=== PATIENT | male | born 1995 | race Caucasian/White ===

== ENCOUNTER 2020-11-29 05:36 | Inpatient (IN) | payer MEDICAID, SELFPAY ==
[2020-11-29 06:01] VITALS: BMI 18.0
--- NOTE | 2020-11-29 06:16 | PC.NURSE ---
25/M SI/ SUBSTANCE ABUSE +METH VOLUNTARY WITH AFFADAVIT DIRECT ADMIT FROM [facility] CHRONIC SUICIDAL IDEATION WITH MULTIPLE PAST ATTEMPTS WITH VARIOUS MODALITIES. REPORTS AUDITORY HALLUCINATIONS CONSTANTLY WITH SOME SHADOWS APPEARING IN VISUAL HALLUCINATIONS RECENTLY, STATES VOICES TELL HIM TO HARM HIMSELF AND HE IS ATTEMPTING TO BLOCK THIS OUT. PT ASKING FOR HELP . [employer] DAILY DRINKING/POT/CIGARETTES SINCE AGE 10. AND METH SINCE AGE 20 DAILY
[2020-11-29] MEDS: acetaminophen 325 mg Tablet 650 MG PO (11:35)
[2020-11-29 14:00] VITALS: BP 115/73; PULSE 56; RESP 18; TEMP 35.8; O2SAT 96
--- NOTE | 2020-11-29 14:50 | P.HP_ITS ---
Providers/Chief Complaint Admitting Physician: Chad Castillo MD Chief Complaint: SI HPI NPU History of Present Illness Rozina Lima is a 25 year old male transferred from [facility] with hallucinations, methamphetamine and alcohol use, and suicidal ideation. He was medically stabilized and cleared prior to transfer. The ED note states: Cathy Lima is a 25-year-old male who has a history of polysubstance abuse, bipolar disorder, recent admission to the [facility] open as needed 11/10?11/16/2020) discharged continuing risperidone and starting Depakote presenting to the ED today for evaluation of SI. Patient reports a long history of SI. He states I have been trying to since I left [place] and describes that is when he left his mom. Patient reports that he has had auditory julieth lucinations since being from his mother. Patient states that his hallucinations have been intermittent and change with medication, however he has SI constantly and it has not changed with any of his medication adjustments. Patient was just discharged from the [place] on 11/16/2020 with his hallucinations improved, however he admits he was still having suicidal ideation. Shortly after being discharged, patient stopped taking his prescribed medications. He complains that in order to stop the hallucinations, he uses drugs and alcohol, but they do not help. He states that his hallucinations do not tell him to harm himself and that his SI is independent of the hallucinations. Patient admits that he has used methamphetamines and alcohol. Labs from [facility] on 11/27/2020 showed CBC that was essentially normal, CMP that was normal, and alcohol level of 23. Salicylate and acetaminophen levels were negative. Valproic acid level was 2.8. The patient was admitted to the neuropsychiatric unit for definitive treatment of these issues. The patient says he has been hearing voices for the past 3 years, and they sometimes say, kill yourself, and sometimes say things like, get your life right. At times he feels that people are following him and are out to get him. He also says that he has depression which includes insomnia, poor appetite, decreased energy, motivation, and concentration, and feelings of helplessness, hopelessness and worthlessness. He also has frequent suicidal thoughts and reports attempting to hang himself by tying a cord to a ceiling fan a couple of years ago. He also says he put a bag over his head to try and kill himself on one occasion. The patient reports drinking 1/5 of alcohol a day, because that makes the voices go away. He denies having had alcohol withdrawal symptoms in the past apart from some shaking. He says he occasionally smokes methamphetamine, about once every 4 weeks. He says he uses marijuana daily, and started at the age of 18. He says that marijuana also decreases his voices and helps him to focus. He denies any previous rehab treatment. He says he has had 1 DWI, and has a court date next month. He says that he is stressed because his family is in [place] and he is homeless. He is not able to return to [place] until he resolves his DWI legal difficulties. The patient says he has been hospitalized 2 or 3 times recently, but denies ever having been started on medication, which seems unusual. He does want to start medication now, and would like to attend rehab treatment. Psychiatric history: As above. Substance use history: As above. Family history: Patient denies mental health or addiction issues on either side of the family and denies suicide attempts or completions in the family. Psychosocial history: The patient says he was born in [facility] and his family moved to [place] when he was 3 years old. He came to [place] with his brother, who has since returned to [place]. He was working at [employer]. Legal history: DWI Medical history: Denies any significant medical history. He says he has right knee pain and cavities in his teeth. Review of Systems General: Reports: 10 or more systems reviewed and unremarkable except in HPI and below Meds NPU Home Medications Medication Instructions Recorded Confirmed Last Taken Type No Known Home Medications 11/29/20 11/29/20 Unknown History Allergies Allergy/AdvReac Type Severity Reaction Status Date / Time latex Allergy ALGY-Rash Verified 11/29/20 06:32 walnut Allergy ADV-Weaknes Verified 11/29/20 06:32 s Mental Status Exam MSE Comments: I met with the patient in their room, and they were appropriately groomed and dressed wearing hospital scrubs. Calm, cooperative, interactive, and made good eye contact. He is tall and thin. No psychomotor agitation or retardation. Speech is halting at times and is stereotypic. Alert, oriented to person, month, and year. He did not know that he was at [facility] in [place], [place]. He did not know the day or date. Attention and concentration were intact. Able to spell the word WORLD correctly forwards and backwards. Memory is fair. Remembers 3/3 words immediately and 2/3 at 3 minutes. He knows the names of the past 3 presidents. Mood is depressed and anxious. Affect is pleasant. Thought process is logical and goal-directed. Thought content: He has auditory but not visual hallucinations. He has feelings that he is being followed but no cathy delusions noted. No current suicidal ideation, no homicidal ideation. Insight and judgment appear to be fair. Vitals/I&O/Wt Weight last 48 hrs Weight 70.76 kg A&P Assessment and plan (1) Major depressive disorder, recurrent, severe with psychotic features: Status: Acute (2) Suicidal ideation: Status: Acute (3) Alcohol abuse: Status: Acute (4) Marijuana abuse: Status: Acute (5) Methamphetamine abuse: Status: Acute Additional A&P Information The patient is a 25-year-old man who complains of a 3-year history of hearing voices, with command hallucinations to kill himself. This is complicated by reported heavy alcohol and marijuana use and occasional methamphetamine use. The patient is willing to take psychiatric medications and go to inpatient rehabilitation. It is noted that the patient presented different stories at the ED in [place] compared to here. He told us that he had not been on any medication in the past. ED reports state that he has had previous medications, felt it was not helping, and stopped taking it. 1. Start Zoloft 50 mg in the morning for depression and Abilify 5 mg daily for psychosis. The patient understands risks, benefits and side effects of the medication and consents to their use. 2. Continue every 15 minute checks for safety. 3. Encourage individual, group and milieu therapies. 4. Encourage sober living treatment after discharge at the highest level of care to which he is willing to commit. 5. Address discrepancies inpatient report of medication history. . Involuntary Hold Information 96 Hour Hold: 96 Hour Involuntary Admission: No Attestations NPU Medical Necessity Statement*: Psychiatric hospitalization is medically ne cessary to prevent access to lethal means, to reevaluate medication, and to coordinate a safe discharge. Patient will be in the hospital for over 2 midnights. Likely length of stay is 3 to 5 days. Coding Level of Care Code Acute [employer] for g Fwd Diagnoses Major depressive disorder, recurrent, severe with psychotic features F33.3 Suicidal ideation R45.851 Alcohol abuse F10.10 Marijuana abuse F12.10 Methamphetamine abuse F15.10
[2020-11-29] MEDS: sertraline 50 mg Tablet PO (15:04)
[2020-11-29] MEDS: ARIPiprazole 10 mg Tablet 5 MG PO (15:04)
[2020-11-29 22:00] VITALS: BP 97/56; PULSE 69; RESP 17; TEMP 37; O2SAT 99
[2020-11-30 06:00] VITALS: BP 111/63; PULSE 58; RESP 16; TEMP 36.9; O2SAT 96
[2020-11-30] MEDS: sertraline 50 mg Tablet PO (08:43)
[2020-11-30] MEDS: ARIPiprazole 10 mg Tablet 5 MG PO (08:43)
--- NOTE | 2020-11-30 10:46 | PM.NDC ---
Diagnoses at Discharge Discharge Diagnosis (1) Major depressive disorder, recurrent, severe with psychotic features: Status: Resolved (2) Suicidal ideation: Status: Resolved (3) Alcohol abuse: Status: Acute (4) Marijuana abuse: Status: Acute (5) Methamphetamine abuse: Status: Acute Reason for Visit Reason for Visit: SI Brief History: Rozina Lima is a 25 year old male transferred from [facility] with hallucinations, methamphetamine and alcohol use, and suicidal ideation. He was medically stabilized and cleared prior to transfer. The ED note states: Ishmael Lima is a 25-year-old male who has a history of polysubstance abuse, bipolar disorder, recent admission to the [facility] open as needed 11/10?11/16/2020) discharged continuing risperidone and starting Depakote presenting to the ED today for evaluation of SI. Patient reports a long history of SI. He states I have been trying to since I left [place] and describes that is when he left his mom. Patient reports that he has had auditory hallucinations since being from his mother. Patient states that his hallucinations have been intermittent and change with medication, however he has SI constantly and it has not changed with any of his medication adjustments. Patient was just discharged from the [place] on 11/16/2020 with his hallucinations improved, however he admits he was still having suicidal ideation. Shortly after being discharged, patient stopped taking his prescribed medications. He complains that in order to stop the hallucinations, he uses drugs and alcohol, but they do not help. He states that his hallucinations do not tell him to harm himself and that his SI is independent of the hallucinations. Patient admits that he has used methamphetamines and alcohol. Labs from [facility] on 11/27/2020 showed CBC that was essentially normal, CMP that was normal, and alcohol level of 23. Salicylate and acetaminophen levels were negative. Valproic acid level was 2.8. The patient was admitted to the neuropsychiatric unit for definitive treatment of these issues. The patient says he has been hearing voices for the past 3 years, and they sometimes say, kill yourself, and sometimes say things like, get your life right. At times he feels that people are following him and are out to get him. He also says that he has depression which includes insomnia, poor appetite, decreased energy, motivation, and concentration, and feelings of helplessness, hopelessness and worthlessness. He also has frequent suicidal thoughts and reports attempting to hang himself by tying a cord to a ceiling fan a couple of years ago. He also says he put a bag over his head to try and kill himself on one occasion. The patient reports drinking 1/5 of alcohol a day, because that makes the voices go away. He denies having had alcohol withdrawal symptoms in the past apart from some shaking. He says he occasionally smokes methamphetamine, about once every 4 weeks. He says he uses marijuana daily, and started at the age of 18. He says that marijuana also decreases his voices and helps him to focus. He denies any previous rehab treatment. He says he has had 1 DWI, and has a court date next month. He says that he is stressed because his family is in [place] and he is homeless. He is not able to return to [place] until he resolves his DWI legal difficulties. The patient says he has been hospitalized 2 or 3 times recently, but denies ever having been started on medication, which seems unusual. He does want to start medication now, and would like to attend rehab treatment. Hospital Course Hospital Course He was admitted to the neuropsychiatric unit for definitive treatment of these issues. On the unit he slowly acclimated to the individual, group and milieu therapies. There were some mild psychotic symptoms present initially which resolved with the medication being restarted. We restarted Zoloft 50 mg in the morning for depression and Abilify 5 mg daily for psychosis. He had no side effects. He was receptive to treatment team recommendations and showed modest improvement and was able to contract for safety prior to discharge. During the hospitalization, patient had routine laboratory studies which were within normal limits except for few outliers. Additionally there was a general medical evaluation which was also within normal limits and revealed no new acute processes. Discharge Summary: At the time of discharge, psychosis and lethality were denied. Mood and anxiety were well managed. Patient endorsed a plan to avoid all drugs of abuse and follow-up with the aftercare recommendations of the treatment team. Patient was evaluated and deemed to be absent credible lethality, and had achieved the maximum benefit from an inpatient hospitalization, so was discharged. Involuntary Hold Information 96 Hour Hold: 96 Hour Involuntary Admission: No Mental Status Exam MSE Comments: The patient made good eye contact and was cooperative and open to the exam. No psychomotor agitation or retardation. Speech was had a regular rate and rhythm without pressure. Alert and oriented to person, place, time, and situation. Attention and concentration were intact to exam Memory was fairly good to exam. Mood is improved without depression and anxiety. Affect is brighter. Thought process: Logical and goal directed. No racing thoughts or flight of ideas. Thought content: Denies auditory and visual hallucinations. There are no delusions noted. No suicidal or homicidal ideation. Has future-oriented goals. Insight and judgment are improved and adequate. Discharge Data Vitals: Last Vital Signs Temp 98.4 F 11/30/20 06:00 Pulse 58 L 11/30/20 06:00 Resp 16 11/30/20 06:00 BP 111/63 11/30/20 06:00 Pulse Ox 96 11/30/20 06:00 Discharge Plan Discharge Patient Disposition: Home Condition: Stable Prescriptions: New aripiprazole 10 mg Tablet 5 mg PO DAILY 30 Days Qty: 15 RF: 0 sertraline 50 mg Tablet 50 mg PO DAILY 30 Days Qty: 30 RF: 0 Discharge Orders: Discharge Order (Routine); Ordered 11/30/20 Ordered By: Chad Castillo Discharge Diet: Usual diet Discharge Activity: Resume usual activity Patient Instructions: Opioid Safety Discharge Attestations NPU Time Spent in Discharge Care*: less than 30 min Specific Discharge Activities: Specific discharge activities: educating patient, discussing with patient case manager/social workers/dc planners, documenting/other paperwork and evaluating patient/reviewing data Status at Discharge: Cognitive status at discharge: cognitively intact, Behavioral status at discharge: cooperative, Functional status at discharge: independent ambulation Overall status at discharge: patient is back to baseline Coding Level of Care Code Acute g DC note Diagnoses Major depressive disorder, recurrent, severe with psychotic features F33.3 Suicidal ideation R45.851 Alcohol abuse F10.10 Marijuana abuse F12.10 Methamphetamine abuse F15.10
[2020-11-30 11:13] VITALS: BP 111/63; PULSE 58; RESP 16; TEMP 36.9; O2SAT 96
== END 2020-11-30 16:25 | disposition home or self-care (01) | DRG 885 ==
PROVIDERS: Admitting Provider Psychiatry & Neurology Child & Adolescent Psychiatry; Visit Provider Psychiatry & Neurology Child & Adolescent Psychiatry
DX: F33.3 Major depressive disorder, recurrent, severe with psychotic symptoms (principal); R45.851 Suicidal ideations; F10.14 Alcohol abuse with alcohol-induced mood disorder; F15.14 Other stimulant abuse with stimulant-induced mood disorder; F12.10 Cannabis abuse, uncomplicated